=== PATIENT | male | born 1965 | race Caucasian/White ===

== ENCOUNTER 2020-04-05 17:04 | Inpatient (IN) | payer OTHER ==
[~2020-04-05] VITALS: Ht 182.9 cm; Wt 79.3 kg
[2020-04-05 17:12] VITALS: BP 160/89
[2020-04-05 17:31] LABS: URINE BILIRUBIN NEGATIVE (Negative); URINE BLOOD NEGATIVE (Negative); URINE CLARITY CLEAR; URINE COLOR YELLOW; URINE GLUCOSE-RANDOM* NEGATIVE (Negative); URINE KETONES NEGATIVE (Negative); URINE LEUKOCYTES-REFLEX NEGATIVE (Negative); URINE NITRITE-REFLEX NEGATIVE (Negative); URINE PROTEIN (DIPSTICK) NEGATIVE (Negative); URINE SPECIFIC GRAVITY >= 1.030 (1.005-1.035); URINE UROBILINOGEN 0.2 E.U./dl (0.2-1.0)
[2020-04-05 17:32] LABS: HEMATOCRIT 47.4 % (42.0-52.0); HEMOGLOBIN 17.1 gm/dL (14.0-18.0); MCHC 36.1 g/dL (28.0-37.0); MCV 88.5 fL (80.0-100.0); RBC 5.35 mil/uL (4.50-6.00); RDW 13.2 % (10.5-14.5); WBC 8.3 thou/uL (4.0-11.0)
[2020-04-05 17:42] LABS: ANION GAP 12 mmol/L (7-16); BUN 16 mg/dL (7-18); CALCIUM 9.7 mg/dL (8.5-10.1); CHLORIDE 99 mmol/L (98-107); CO2 27 mmol/L (21-32); CREATININE 0.9 mg/dL (0.7-1.3); GLUCOSE 115 mg/dL (74-106); POTASSIUM 3.6 mmol/L (3.5-5.1); SODIUM 138 mmol/L (136-145)
[2020-04-05 17:52] LABS: ALBUMIN 4.6 g/dL (3.4-5.0); DIRECT BILIRUBIN 0.1 mg/dL (<0.1-0.2); SGOT 24 U/L (15-37); SGPT 35 U/L (30-65); TOTAL BILIRUBIN 0.7 mg/dL (0.2-1.0); TOTAL PROTEIN 7.8 g/dL (6.4-8.2); TROPONIN-I <0.06 ng/mL (<0.06)
[2020-04-05 18:59] LABS: APTT 27.3 Seconds (24.5-32.8); PROTIME 10.3 Seconds (9.3-11.4)
[2020-04-06] VITALS (41 sets, daily range): BP systolic 107–145; BP diastolic 63–96
[2020-04-06] MEDS ORDERED: NOHOMEMEDICATIONS (01:58)
[2020-04-06 05:56] LABS: ALBUMIN 3.5 g/dL (3.4-5.0); ANION GAP 11 mmol/L (7-16); BUN 12 mg/dL (7-18); CALCIUM 8.1 mg/dL (8.5-10.1); CHLORIDE 104 mmol/L (98-107); CO2 23 mmol/L (21-32); CREATININE 0.7 mg/dL (0.7-1.3); GLUCOSE 88 mg/dL (74-106); POTASSIUM 3.6 mmol/L (3.5-5.1); SGOT 21 U/L (15-37); SGPT 26 U/L (30-65); SODIUM 138 mmol/L (136-145); TOTAL BILIRUBIN 0.7 mg/dL (0.2-1.0); TOTAL PROTEIN 6.5 g/dL (6.4-8.2)
[2020-04-06 06:28] LABS: CHOLESTEROL 209 mg/dL (<200); HDL CHOLESTEROL 44 mg/dL (>40); LDL CHOLESTEROL 119 mg/dL (<100); TC:HDL 4.8 Ratio (Not establshd); TRIGLYCERIDE 231 mg/dL (<150); VLDL 46 mg/dL (<40)
[2020-04-06 06:32] LABS: SERUM ASSESSMENT Clear
--- NOTE | 2020-04-06 13:22 | 2DMMODE ---
[facility] [address] [place] [address] 2 D/M-MODE ECHOCARDIOGRAM Name: KAMILAH SELBY Room #: 243-P ADM IN M.R.#: [id number] Admission: 04/05/20 Attend Phys: Angelo Borden MD Discharge: Date of : 67 Report #: [id number] THIS REPORT FOR: cc: FAM - Family physician unknown FAM - Family physician unknown Gerardo Bullard MD ~ APPROVED REPORT Study performed: 04/06/2020 11:43:43 EXAM: Comprehensive 2D, Doppler, and color-flow Echocardiogram Patient Location: ICU Room #: 243 Status: routine BSA: 2.01 HR: 62 bpm BP: 115/70 mmHg Rhythm: NSR Other Information Study Quality: Adequate Indications CVA/TIA Echo Enhancing Agent Indication: Rule out Shunt Agent(s) / Amount(s) Used: Agitated Saline 7 cc 2D Dimensions RVDd: 37.07 mm IVSd: 8.71 (7-11mm) LVOT Diam: 21.98 (18-24mm) LVDd: 45.55 mm PWd: 9.04 (7-11mm) Ascending Ao: 32.10 (22-36mm) LVDs: 30.68 (25-40mm) Aortic Root: 32.29 mm IVC: 14.00 mm Volumes Left Atrial Volume (Systole) Single Plane 4CH: 33.62 mL Single Plane 2CH: 24.99 mL LA ESV Index: 18.00 mL/m2 Aortic Valve AoV Peak Wyatt.: 1.08 m/s [facility] [place] [address] 2 D/M-MODE ECHOCARDIOGRAM Name: KAMILAH SELBY Room #: 243-P [facility] IN .R.#: [id number] Admission: 04/05/20 Attend Phys: Angelo Borden MD Discharge: Date of : 67 Report #: [id number] AO Peak Gr.: 4.67 mmHg LVOT Max P.80 mmHg LVOT Max V: 0.84 m/s BRENT Vmax: 2.93 cm2 Mitral Valve E/A Ratio: 1.1 MV Decel. Time: 157.07 ms MV E Max Wyatt.: 0.76 m/s MV A Wyatt.: 0.71 m/s MV PHT: 45.55 ms IVRT: 101.50 ms Pulmonary Valve PV Peak Wyatt.: 0.95 m/s PV Peak Gr.: 3.78 mmHg Pulmonary Vein P Vein S: 0.44 m/s P Vein A: 0.21 m/s P Vein D: 0.42 m/s P Vein A Dur.: 96.9 msec P Vein S/D Ratio: 1.05 Tricuspid Valve TR Peak Wyatt.: 2.44 m/s TR Peak Gr.: 23.88 mmHg PA Pressure: 29.00 mmHg Left Ventricle The left ventricle is normal size. There is normal LV segmental wall motion. There is normal left ventricular wall thickness. Left ventricular systolic function is normal. The left ventricular ejection fraction is within the normal range. LVEF is 55-60%. The left ventricular diastolic function is normal. Right Ventricle The right ventricle is normal size. The right ventricular systolic function is normal. Atria The left atrium size is normal. Small PFO is noted is noted with color flow doppler. The right atrium size is normal. Aortic Valve The aortic valve is normal in structure. No aortic regurgitation is present. There is no aortic valvular stenosis. Mitral Valve The mitral valve is normal in structure. Trace mitral regurgitation. [facility] [address] [place] [address] 2 D/M-MODE ECHOCARDIOGRAM Name: KAMILAH SELBY Room #: 243-P [facility] IN [facility].#: [id number] Admission: 04/05/20 Attend Phys: Angelo Borden MD Discharge: Date of : 67 Report #: [id number] No evidence of mitral valve stenosis. Tricuspid Valve The tricuspid valve is normal in structure. There is trace tricuspid regurgitation. Estimated PAP 29 mmHg. There is no pulmonary hypertension. Pulmonic Valve The pulmonary valve is normal in structure. There is no pulmonic valvular regurgitation. Great Vessels The aortic root is normal in size. IVC is normal in size and collapses >50% with inspiration. Pericardium There is no pericardial effusion. <Conclusion> The left ventricle is normal size. LVEF is 55-60%. The aortic valve is normal in structure. The tricuspid valve is normal in structure. There is trace tricuspid regurgitation. Estimated PAP 29 mmHg. There is no pulmonary hypertension. The pulmonary valve is normal in structure. There is no pericardial effusion. Small PFO is noted is noted with color flow doppler. <ELECTRONICALLY SIGNED> By: Gerardo Bullard MD 04/06/20 1322 21 21 Gerardo Bullard MD /INF
[2020-04-07] VITALS: BP 130/75
[2020-04-07 00:06] LABS: GLYCOHEMOGLOBIN (HGB A1C) 5.5 % (4.8-5.6)
[2020-04-07 04:58] VITALS: BP 131/86
[2020-04-07 08:00] VITALS: BP 134/83
[2020-04-07 08:12] LABS: TSH 2.504 uIU/mL (0.358-3.740)
--- NOTE | 2020-04-07 08:53 | EKG ---
[facility] [place] [address] [place] [address] ELECTROCARDIOGRAM REPORT Name: SOLAKAMILAH Tomas Room #: 208-P ADM IN M.R.#: [id number] Admission: 04/05/20 Attend Phys: Angelo Borden MD Discharge: Date of : 67 Report #: [id number] THIS REPORT FOR: cc: FAM - Family physician unknown FAM - Family physician unknown Elmer Cruz MD [facility] ~ THIS REPORT FOR: //name// [facility] ED Test Date: 2020-04-05 Test Time: 18:08:42 Pat Name: KAMILAH SELBY Department: Room: 208 Gender: M Wound Care Specialist: ESHEETS : 1965 Requested By: Yaneli Whatley Order Number: [id number] MD: Elmer Cruz Measurements Intervals [place] Rate: 70 P: 77 SD: 177 QRS: 54 QRSD: 100 T: 32 QT: 377 QTc: 407 Interpretive Statements Sinus rhythm Normal tracing Baseline wander in lead(s) V2 No previous ECG available for comparison Electronically Signed On 04-07-2020 8:53:41 CDT by Elmer Cruz [email or web address] <ELECTRONICALLY SIGNED> By: Elmer Cruz MD, [facility] 04/07/20 0853 1808 180 Elmer Cruz MD, [facility] /EPI
[2020-04-07 11:30] VITALS: BP 127/76
[2020-04-07] MEDS ORDERED: LIPITOR10 MG PO (12:01)
[2020-04-07] MEDS ORDERED: TRI-BUFFERED A325 M1 PO (12:01)
[2020-04-07 12:39] VITALS: BP 127/76
[2020-04-07 12:47] VITALS: BP 127/76
--- NOTE | 2020-04-08 19:17 | HC ---
[facility] [place] [address] CONSULTATION Name: SOLAKAMILAH Thom Room #: 208-P [facility] IN ..#: [id number] Admission: 04/05/20 Attend Phys: Angelo Borden MD Discharge: 04/07/20 Date of : 67 Report #: [id number] THIS REPORT FOR: cc: LESLIE - Family physician unknown LESLIE - Family physician unknown Chuck Cali MD ~ CC: LESLIE unknown Angelo Borden DATE OF SERVICE: 04/05/2020 HISTORY OF PRESENT ILLNESS: This is a 55-year-old male patient who was evaluated by me for acute onset of aphasia, which happened around 5:30. He noticed that he could not express himself. Initially, the patient was managed by Dr. Whatley from Emergency Room and she did a CT scan of the head and blood workup in this patient and then Neurology consultation was requested. I immediately started from home and came and saw the patient. The patient is having pretty significant expressive aphasia. It was sudden in onset. He never had a stroke in the past. He apparently had an optic neuritis, but there was no hemorrhage in the eye. They do not know if it was a retinal artery embolus or anything else, but they are pretty certain there was no hemorrhage in the eye. He got only partial vision back in the right eye. He does have some dizziness, but the major problem appeared to be aphasia. He does not have any history of anxiety. He does not have any history of depression. He does not have that many risk factors for stroke either. He has no history of migraine. He has no recent trauma which can predispose this patient for dissection, but spontaneous dissection can also occur. He did take an aspirin. He is not on any blood thinner. REVIEW OF SYSTEMS: Negative for this kind of stroke and negative for any stroke mimics. PAST MEDICAL HISTORY: Negative for any stroke, but is positive for some optic neuritis. FAMILY HISTORY: Unremarkable. SOCIAL HISTORY: He does not smoke. PHYSICAL EXAMINATION: Indicate that he is alert. When he tries to talk, he has to struggle with the word, he will say a few words, but then he will struggle with the words again. He becomes frustrated with that. He is complaining of some dizziness, but I do not see any problem with extraocular movements, except his baseline right eye deficit. His strength may be trace diminished on the right side, but the difference is minor. His sensation looks intact. Cardiac and respiratory examinations appear unremarkable. [facility] [address] [place] [address] CONSULTATION Name: KAMILAH SELBY Thom Room #: 208-P [facility] IN ..#: [id number] Admission: 04/05/20 Attend Phys: Angelo Borden MD Discharge: 04/07/20 Date of : 67 Report #: [id number] IMPRESSION: I had a malcolm discussion with the patient and the . I told them I cannot be certain what his symptoms are coming from. I discussed with him that he does have a stroke-like symptoms, but stroke mimics cannot be excluded at this time. If we try to exclude the stroke mimics, the time to give him TPA will run out, which the patient should receive TPA also has been questionable and varying a lot. Previously we never used to give TPA with low NIH scale. Then the feeling was that we should give to all of them because if they become worse, the time has passed. Now, there are again some studies has raised the question about that. One of the things we should consider is the disability, which this will cause. 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 I discussed all of it with him in detail. I discussed with him potential complication of TPA. I told him I do not know what the diagnosis of the eye problem was. It can aggravate the problem and it can also be MS. Although MS does not come that suddenly. If he had some hemorrhage, it can become worse with the TPA and he can lose vision in the right eye. I tried to look at the right eye and I could not tell. After discussing all of it with the patient and the after discussing all their options with them and after giving them the option whether they want to receive the TPA or not, they decided they want to receive the TPA. They fully understand the catastrophic complication of intracerebral hemorrhage, which is fatal majority of the time when it is symptomatic and they want to receive TPA. TPA was started. He got the morning dose without any problem. As I am dictating, I got a call from the radiologist whom I have given my number to call after looking at the CT and perfusion and he tells me that was normal. I am going to go and talk to him and I might cut back his dose to 0.6 mg/kg of the body weight after talking to him because that dose has been found to be as effective as 0.9 or we may continue with the 0.9. All of it was discussed with the patient in detail and he understands very well and he was given TPA and he need to go to ICU and we will watch him very closely. I had examined him repeatedly and his aphasia has not become better, but his weakness is minor. He signed the consent for TPA and he has also given oral consent. Thank you very much for this referral. This addendum is being added at the time of signinig the note. Patient was given TPA but patient's blood pressure started to drop. He was given fluid bolus but blood pressure did not come up. After multiple attenpts it was found that BP machine was not accurate. Bolus was stopped. There was concern about complication and options were discussed with patient again and he was give 0.6 mg dose of TPA after discusssing his options and pros and cons of option. Total of more than 90 minutes of time was spent taking care of this patient including [facility] [address] [place] [address] CONSULTATION Name: KAMILAH SELBY Room #: 208-P [facility]#: [id number] Admission: 04/05/20 Attend Phys: Angelo Borden MD Discharge: 04/07/20 Date of : 67 Report #: [id number] about half an hour of critical care time while monitoring and adjusting his treatment with TPA <ELECTRONICALLY SIGNED> By: Chuck Cali MD 04/08/201916 19 55 Chuck Cali MD /nt
== END 2020-04-07 13:50 | disposition home or self-care (01) | DRG 62 ==
LOC: ER 17:04 → ICU 19:57 → EROBS 19:57 → ICU 04-06 01:10 → 2N 04-07 02:12
PROVIDERS: Emergency Medicine; Nurse Practitioner Family; Psychiatry & Neurology Neuromuscular Medicine; ADMIT Hospitalist; ATTEND Hospitalist
DX: I63.9 Cerebral infarction, unspecified (principal); Q21.1 Atrial septal defect; G83.21 Monoplegia of upper limb affecting right dominant side; R47.01 Aphasia; Z79.82 Long term (current) use of aspirin; Z79.899 Other long term (current) drug therapy
CPT/HCPCS: 10078

== ENCOUNTER → 2021-07-09 | Outpatient (CLI) | payer OTHER ==
[~2021-07-09] MED LIST: LIPITOR10 MG PO; NOHOMEMEDICATIONS; TRI-BUFFERED A325 M1 PO
[2021-07-09 08:34] VITALS: BP 132/88
--- NOTE | 2021-07-12 13:12 | CATHLAB ---
[facility] [place] [address] [place] [address] INVASIVE PROCEDURE REPORT Name: KAMILAH SELBY Room #: REG [facility].#: [id number] Admission: 07/09/21 Attend Phys: Elmer Cruz MD, Discharge: Date of : 67 Report #: [id number] THIS REPORT FOR: cc: Saleem Ralph MD, Neal A. MD Lundgren,Elmer Gilliam MD [facility] ~ DATE OF SERVICE: 07/09/2021 IMPLANTABLE LOOP RECORDER REASON FOR THE STUDY: Prior strokes PROCEDURE: The potential benefits and risks of the procedure were discussed at length with the patient who understood; full written and informed consent was obtained. The patient's left anterior chest was prepped and draped in a sterile fashion. A 1% Xylocaine was used as local anesthetic; a small less than 1-cm incision was made over the fourth intercostal space. A Medtronic LINQ loop recorder, serial number [id number] was placed. A single bioabsorbable stitch was placed, and the incision was covered with a sterile Band-Aid. He tolerated the procedure well. Sensing thresholds were excellent. SUMMARY: Successful Medtronic Reveal LINQ loop recorder and evaluation of recurrent stroke. <ELECTRONICALLY SIGNED> By: Elmer Cruz MD, [facility] 07/12/21 1312 0703 1 Elmer Cruz MD, FACC /nt
== END | disposition home or self-care (01) ==
LOC: CATH 06:26
PROVIDERS: ATTEND Internal Medicine
DX: Z45.09 Encounter for adjustment and management of other cardiac device (principal); R00.2 Palpitations; E78.5 Hyperlipidemia, unspecified; Z86.73 Personal history of transient ischemic attack (TIA), and cerebral infarction without residual deficits; Z98.890 Other specified postprocedural states; Z79.899 Other long term (current) drug therapy

== ENCOUNTER 2021-08-10 01:04 | Emergency (ER) | payer OTHER ==
[~2021-08-10] VITALS: Ht 182.9 cm; Wt 83.9 kg
[2021-08-10 03:47] LABS: ABSOLUTE NEUTROPHILS 8.4 thou/uL (1.4-8.2); BASOPHILS 0.5 % (0.0-2.0); EOSINOPHILS 0.8 % (0.0-3.0); HEMATOCRIT 50.1 % (42.0-52.0); LYMPHOCYTES 12.7 % (24.0-44.0); MCH 30.6 pg (26.0-34.0); MCV 90.2 fL (80.0-100.0); MONOCYTES 8.9 % (1.0-8.0); PLATELET COUNT 270 thou/uL (150-400); POLYS 77.1 % (36.0-66.0); RBC 5.56 mil/uL (4.50-6.00); RDW 13.4 % (10.5-14.5); WBC 10.9 thou/uL (4.0-11.0)
[2021-08-10 05:14] LABS: CALCIUM 9.1 mg/dL (8.5-10.1); POTASSIUM 3.7 mmol/L (3.5-5.1)
[2021-08-10 05:18] LABS: ALBUMIN 4.1 g/dL (3.4-5.0); TOTAL BILIRUBIN 0.9 mg/dL (0.2-1.0); TOTAL PROTEIN 7.4 g/dL (6.4-8.2)
[2021-08-10 05:58] VITALS: BP 143/80
--- NOTE | 2021-08-10 07:51 | EKG ---
[place] [address] [facility] [place] [address] ELECTROCARDIOGRAM REPORT Name: KAMILAH SELBY Thom Room #: [facility] Lu#: [id number] Admission: 08/10/21 Attend Phys: Discharge: 08/10/21 Date of : 67 Report #: [id number] [facility] ED Test Date: 2021-08-10 Test Time: 01:16:43 Pat Name: KAMILAH SELBY Department: Room: Gender: M Liquor Tester: : 1965 Requested By: Keyshawn Areans Order Number: [id number] MD: Elmer Cruz Measurements Intervals [place] Rate: 70 P: 77 AK: 177 QRS: 63 QRSD: 93 T: 34 QT: 388 QTc: 419 Interpretive Statements Sinus rhythm No significant abnormality Compared to ECG 04/05/2020 18:08:42 No significant changes Electronically Signed On 08-10-2021 7:51:18 CODE ENFORCEMENT OFFICER by Elmer Cruz [email or web address] <ELECTRONICALLY SIGNED> By: Elmer Cruz MD, [facility] 08/10/21 0751 0116 0116 Elmer Cruz MD, FACC /EPI
== END 2021-08-10 06:05 | disposition home or self-care (01) ==
LOC: ER 01:04
PROVIDERS: Emergency Medicine
DX: R42 Dizziness and giddiness (principal); Z20.822 Contact with and (suspected) exposure to COVID-19; R68.83 Chills (without fever); E78.5 Hyperlipidemia, unspecified; Z88.8 Allergy status to other drugs, medicaments and biological substances; Z79.82 Long term (current) use of aspirin; Z86.73 Personal history of transient ischemic attack (TIA), and cerebral infarction without residual deficits

== ENCOUNTER 2021-10-10 17:11 | Observation (INO) | payer OTHER ==
[~2021-10-10] VITALS: Ht 182.9 cm; Wt 87.1 kg
--- NOTE | ~2021-10-10 | EMS ---
[place] [address] EMS Patient Care Report Name: KAMILAH SELBY Room #: REG FLO Leigh#: [id number] Admission: 10/10/21 Attend Phys: Discharge: Date of : 67 Report #: [id number] THIS REPORT FOR: //name// Report Transmitted: 10/10/2021 17:34 EMS Care Summary [place], [place]/[facility] Incident [phone] @ 10/10/2021 16:46 Incident Location [address] [place] [address] Patient KAMILAH SELBY Male, 56 Years 1965 Patient Address [address] [place] [address] Patient History Hypertension (HTN),Stroke/CVA,Hyperlipidemia, Patient Allergies Other drug allergy, Patient Medications Vitamin D, Aspirin, Zetia, Nebivolol, Chief Complaint right sided tingling Disposition Transported No Lights/[place] Reason Stroke/CVA Transported To [facility] Narrative M36 dispatched on a stroke. M36 arrived to home to find PT seated in front room. PT stated having a stroke as chief complaint. PT stated he felt like this the last time he had a stroke. PT stated symptoms started 30 minutes ago when he had trouble spelling words in a letter he was writing. [place] [address] EMS Patient Care Report Name: KAMILAH SELBY [id number] Admission: 10/10/21 Attend Phys: Discharge: Date of : 67 Report #: [id number] stated he did feel weak and tingly on his right side. PT stated "a year and a half ago I had a stroke and was given the clot buster drugs." PT denied being on blood thinners. PT [place] stroke scale normal on scene. PT assisted to stand and take steps to stretcher. PT sat on stretcher and was secured with seatbelts. PT vitals monitored during transport. PT report given. PT scooted self to hospital bed. PT care and belongings transferred to ER staff at [facility] without incident. M36 placed back in service. Initial Vitals @16:50P: 66,R: 20,BP: 151/84,Pain: 0/10,GCS: 15,CO: 0,SpO2: 100,Revised Trauma: 12, @17:00P: 61,R: 20,BP: 148/90,Pain: 0/10,GCS: 15,SpO2: 99,Revised Trauma: 12, @16:59P: 62,R: 18,Pain: 0/10,GCS: 15,CO: 0,SpO2: 99,[place] Suspected: false @16:55P: 65,R: 18,BP: 149/86,Pain: 0/10,GCS: 15,CO: 0,SpO2: 100,Revised Trauma: 12, Assessments @16:51MENTAL:Person Oriented,Place Oriented,Time Oriented,Event Oriented,SKIN:Pale,HEENT:Eyes: Right: Other,LUNG SOUNDS:ABDOMEN:PELVIS//GI:EXTREMITIES:Right Arm: Abnormal Sensation,Right Arm: Weakness,Right Leg: Weakness,Right Leg: Abnormal Sensation,PULSE:Radial: 2+ Normal,NEURO:Weakness Right-Sided, Impression Stroke Procedures @16:59 12-Lead ECG Response: UnchangedSucceeded @16:50 ALS Assessment Response: UnchangedSucceeded @16:56 IV Therapy - Saline Lock 10cc (18 ga) Site: Forearm-Left Response: UnchangedSucceeded @16:52 3-Lead ECG Response: UnchangedSucceeded Timeline 16:44,Call Received 16:44,Dispatch Notified 16:46,Dispatched 16:46,En Route 16:49,On Scene 16:50,At Patient 16:50,BP: 151/84 M,PULSE: 66,RR: 20 R,SPO2: 100 Ox,ETCO2: ,BG: ,PAIN: 0,GCS: 15, 16:50,ALS Assessment,Response: UnchangedSucceeded, [address] [address] EMS Patient Care Report Name: KAMILAH SELBY Room #: REG FLO Leigh#: [id number] Admission: 10/10/21 Attend Phys: Discharge: Date of : 67 Report #: [id number] 16:52,3-Lead ECG,Response: UnchangedSucceeded, 16:55,BP: 149/86 M,PULSE: 65,RR: 18 R,SPO2: 100 Ox,ETCO2: ,BG: ,PAIN: 0,GCS: 15, 16:56,IV Therapy - Saline Lock 10cc 18 ga Site: Forearm-Left,Response: UnchangedSucceeded, 16:59,12-Lead ECG,Response: UnchangedSucceeded, 16:59,BP: / M,PULSE: 62,RR: 18 R,SPO2: 99 Ox,ETCO2: ,BG: ,PAIN: 0,GCS: 15, 17:00,BP: 148/90 M,PULSE: 61,RR: 20 R,SPO2: 99 Ox,ETCO2: ,BG: ,PAIN: 0,GCS: 15, 17:02,Depart Scene 17:18,At Destination 17:26,Call Closed Disclaimer v1.1 Copyright 2021 [employer] This EMS Care Summary contains data elements from the applicable legal record (which may be displayed differently). It is designed to provide pertinent information for the following purposes: continuity of care, clinical quality, and state data reporting. The complete legal record is available to ED staff and administrators of the receiving hospital in [employer]'s Patient Tracker. All data is provided "as is."
[2021-10-10 17:12] VITALS: BP 129/80
[2021-10-10 17:36] LABS: ABSOLUTE NEUTROPHILS 9.8 thou/uL (1.4-8.2); BASOPHILS 0.4 % (0.0-2.0); EOSINOPHILS 0.6 % (0.0-3.0); HEMATOCRIT 47.1 % (42.0-52.0); HEMOGLOBIN 16.4 gm/dL (14.0-18.0); LYMPHOCYTES 11.7 % (24.0-44.0); MCH 30.4 pg (26.0-34.0); MCHC 34.7 g/dL (28.0-37.0); MCV 87.6 fL (80.0-100.0); MONOCYTES 5.1 % (1.0-8.0); PLATELET COUNT 281 thou/uL (150-400); POLYS 82.2 % (36.0-66.0); RBC 5.38 mil/uL (4.50-6.00); RDW 13.3 % (10.5-14.5); WBC 11.9 thou/uL (4.0-11.0)
[2021-10-10] MEDS ORDERED: ASPIRIN EC325 M1 PO (17:36)
[2021-10-10] MEDS ORDERED: ZETIA10 MG PO (17:36)
[2021-10-10] MEDS ORDERED: BYSTOLIC10 MG PO (17:36)
[2021-10-10] MEDS ORDERED: REPATHA SU140 MG/1 M SUBQ (17:37)
[2021-10-10] MEDS ORDERED: VITAMIN D3250 MCG PO (17:37)
[2021-10-10 18:42] LABS: ALBUMIN 3.9 g/dL (3.4-5.0); CALCIUM 9.4 mg/dL (8.5-10.1); POTASSIUM 4.3 mmol/L (3.5-5.1); TOTAL BILIRUBIN 1.1 mg/dL (0.2-1.0); TOTAL PROTEIN 6.8 g/dL (6.4-8.2)
[2021-10-10 19:54] VITALS: BP 113/72
[2021-10-10 20:00] VITALS: BP 113/72
[2021-10-10 21:49] VITALS: BP 141/85
[2021-10-11 02:16] LABS: CHOLESTEROL 87 mg/dL (<200); HDL CHOLESTEROL 48 mg/dL (>40); LDL CHOLESTEROL 12 mg/dL (<100); TC:HDL 1.8 Ratio (Not establshd); TRIGLYCERIDE 136 mg/dL (<150); VLDL 27 mg/dL (<40)
[2021-10-11 02:28] LABS: SERUM ASSESSMENT Clear
[2021-10-11 03:05] VITALS: BP 149/89
[2021-10-11 04:55] VITALS: BP 117/73
[2021-10-11 07:36] VITALS: BP 120/71
--- NOTE | 2021-10-11 07:59 | EKG ---
[address] [address] ELECTROCARDIOGRAM REPORT Name: KAMILAH SELBY Room #: 439-P [facility]#: [id number] Admission: 10/10/21 Attend Phys: Tim Meza MD Discharge: Date of : 67 Report #: [id number] [facility] ED Test Date: 2021-10-10 Test Time: 17:28:59 Pat Name: KAMILAH SELBY Department: Room: 439 Gender: M Clinical Project Manager: : 1965 Requested By: Ximena Kamara Order Number: [id number] MD: Darian Rasheed Measurements Intervals [place] Rate: 57 P: 45 RI: 163 QRS: 55 QRSD: 82 T: 31 QT: 397 QTc: 387 Interpretive Statements Sinus rhythm Compared to ECG 08/10/2021 01:16:43 No significant changes Electronically Signed On 10-11-2021 7:59:42 LUMBER ESTIMATOR by Darian Rasheed [email or web address] <ELECTRONICALLY SIGNED> By: Darian Rasheed MD, [facility] 10/11/21 0759 1728 1728 Darian Rasheed MD, FACC /EPI
[2021-10-11 11:57] VITALS: BP 112/76
--- NOTE | 2021-10-11 12:13 | 2DMMODE ---
[facility] [address] [employer] [address] 2 D/M-MODE ECHOCARDIOGRAM Name: KAMILAH SELBY Room #: 439-P ADM Jordan M.R.#: [id number] Admission: 10/10/21 Attend Phys: Tim Meza MD Discharge: Date of : 67 Report #: [id number] THIS REPORT FOR: cc: Saleem Ralph MD, Neal A. MD Lammoglia, Francisco J. MD ~ APPROVED REPORT Study performed: 10/11/2021 11:21:39 EXAM: Comprehensive 2D, Doppler, and color-flow Echocardiogram Patient Location: In-Patient Room #: 439 Status: routine BSA: 2.11 HR: 47 bpm BP: 120/71 mmHg Rhythm: NSR Other Information Study Quality: Adequate Indications CVA/TIA 2D Dimensions IVSd: 7.68 (7-11mm) LVOT Diam: 22.19 (18-24mm) LVDd: 43.71 mm PWd: 11.21 (7-11mm) Ascending Ao: 35.30 (22-36mm) LVDs: 31.79 (25-40mm) Left Atrium: 30.70 (27-40mm) Aortic Root: 31.94 mm Tricuspid Valve TR Peak Wyatt.: 2.38 m/s RAP Estimate: 7.00 mmHg TR Peak Gr.: 22.75 mmHg RVSP: 29.00 mmHg Left Ventricle The left ventricle is normal size. There is normal LV segmental wall motion. There is normal left ventricular wall thickness. Left ventricular systolic function is normal. The left ventricular ejection fraction is within the normal range. LVEF is 50-55%. This study is not technically sufficient to allow evaluation of the LV diastolic function. [facility] [address] [place] [address] 2 D/M-MODE ECHOCARDIOGRAM Name: KAMILAH SELBY Room #: 439-P [facility] IN ..#: [id number] Admission: 10/10/21 Attend Phys: Tim Meza, Discharge: Date of : 67 Report #: [id number] Right Ventricle The right ventricle is normal size. The right ventricular systolic function is normal. Atria The left atrium size is normal. Possible PFO is noted. The right atrium size is normal. Aortic Valve The aortic valve is normal in structure. No aortic regurgitation is present. Mitral Valve The mitral valve is normal in structure. Mild mitral regurgitation. No evidence of mitral valve stenosis. Tricuspid Valve The tricuspid valve is normal in structure. Mild tricuspid regurgitation PAP 28 mmHg Pulmonic Valve The pulmonary valve is normal in structure. Great Vessels The aortic root is normal in size. IVC is normal in size and collapses >50% with inspiration. Pericardium There is no pericardial effusion. <Conclusion> The left ventricle is normal size. LVEF is 50-55%. The right ventricle is normal size. The left atrium size is normal. The aortic valve is normal in structure. The mitral valve is normal in structure. Mild mitral regurgitation. The tricuspid valve is normal in structure. Mild tricuspid regurgitation PAP 28 mmHg The pulmonary valve is normal in structure. The aortic root is normal in size. There is no pericardial effusion. Possible PFO is noted on color flow although technically very [facility] [address] [place] [address] 2 D/M-MODE ECHOCARDIOGRAM Name: KAMILAH SELBY Room #: 439-P ADM IN .R.#: [id number] Admission: 10/10/21 Attend Phys: Tim Meza, Discharge: Date of : 67 Report #: [id number] limited. If clinically relevant test suggest Limited echo with agitated saline contrast. <ELECTRONICALLY SIGNED> By: Gerardo Bullard MD 10/11/211212 12 12 Gerardo Bullard MD /INF
[2021-10-11 15:33] VITALS: BP 144/75
[2021-10-11 16:02] VITALS: BP 144/75
[2021-10-12 05:07] LABS: GLYCOHEMOGLOBIN (HGB A1C) 5.6 % (4.8-5.6)
== END 2021-10-11 16:45 | disposition home or self-care (01) ==
LOC: ER 17:11 → EROBS 19:16 → ER 20:16 → 4S 21:44
PROVIDERS: Nurse Practitioner Family; Student in an Organized Health Care Education/Training Program; ADMIT Internal Medicine; ATTEND Internal Medicine
DX: R42 Dizziness and giddiness (principal); Z20.822 Contact with and (suspected) exposure to COVID-19; I63.9 Cerebral infarction, unspecified; E78.5 Hyperlipidemia, unspecified; I10 Essential (primary) hypertension; Q21.1 Atrial septal defect; F41.9 Anxiety disorder, unspecified; Z79.82 Long term (current) use of aspirin; Z79.899 Other long term (current) drug therapy